=== PATIENT | female | born 1940 | race Caucasian/White ===

== ENCOUNTER 2017-07-11 03:48 | Observation (INO) | payer MEDICARE, OTHER ==
[2017-07-11] MEDS ORDERED: Sodium Chloride 0.9% 1,000 ML IV SCH (04:15)
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
[2017-07-11] MEDS ORDERED: Sodium Chloride 0.9% 10 ML Syringe FLUSH PRN (04:29)
[2017-07-11] MEDS ORDERED: Iopamidol 612 MG/ML 100 ML Bottle IVPUSH ONE (04:29)
[2017-07-11] MEDS ORDERED: Sodium Chloride 0.9% 250 ML IV SCH (04:30)
[2017-07-11] MEDS ORDERED: HYDROmorphone 0.5 MG/0.5 ML SYRINGE IVPUSH ONE ×2 (05:19→14:11)
[2017-07-11] MEDS ORDERED: Bupivacaine 0.5% 10 ML SDV INJECT ONE (06:59)
[2017-07-11] MEDS ORDERED: Lidocaine 1% with EPINEPHrine 1:100,000 20 ML MDV INJECT ONE (06:59)
[2017-07-11] MEDS ORDERED: Diphtheria,Pertussis(Acell),Tetanus Vaccine 0.5 ML SDV IM ONE (07:26)
[2017-07-11] MEDS ORDERED: CARISOPRODOL 350 MG PO PRN (08:32)
[2017-07-11] MEDS ORDERED: SENNOSIDES 8.6 MG PO PRN (08:32)
[2017-07-11] MEDS ORDERED: Ondansetron 4 MG/2 ML SDV IVPUSH PRN (08:34)
[2017-07-11] MEDS ORDERED: Lactated Ringers 1,000 ML IV SCH (08:45)
[2017-07-11] MEDS ORDERED: Pantoprazole 40 MG Tab.CR PO SCH (09:00)
[2017-07-11] MEDS ORDERED: DULoxetine 60 MG Cap*PT OWN MED PO SCH (09:00)
[2017-07-11] MEDS ORDERED: FUROSEMIDE 40 MG PO SCH (09:00)
[2017-07-11] MEDS ORDERED: Diltiazem 180 MG Cap.CD PO SCH ×2 (09:00→12:15)
[2017-07-11] MEDS ORDERED: Aspirin 81 MG Tab.EC PO SCH (09:00)
[2017-07-11] MEDS ORDERED: DULoxetine 30 MG Cap PO SCH (09:00)
[2017-07-11] MEDS ORDERED: Pregabalin 25 MG Cap PO SCH (09:00)
[2017-07-11] MEDS ORDERED: Lidocaine 5% 700 MG Patch TOP SCH (10:30)
[2017-07-11] MEDS ORDERED: DULOXETINE 30 MG PO SCH (10:58)
[2017-07-11] MEDS ORDERED: DILTIAZEM CD 360 MG PO SCH (11:03)
[2017-07-11] MEDS ORDERED: PREGABALIN 100 MG PO SCH (11:05)
[2017-07-11] MEDS ORDERED: Aspirin 81 MG Tab.Chew*PT OWN MED PO SCH (11:30)
[2017-07-11] MEDS ORDERED: Omeprazole 20 MG Cap.CR*PT OWN MED PO ONE (11:30)
[2017-07-11] MEDS ORDERED: Acetaminophen/oxyCODONE 325-5 MG Tab PO PRN (14:11)
--- NOTE | 2017-07-11 16:37 | CT ---
CT abdomen and pelvis Technique: Multiple axial sections were obtained from above the dome of the diaphragm inferiorly through the pubic symphysis. Intravenous contrast was utilized. No oral contrast has been given. Delayed images were also obtained through the bladder. Comparison: No prior abdominal imaging. Findings: Visualized lung bases show nothing acute. Heart is enlarged. Liver shows no focal parenchymal abnormality. Spleen shows no discrete abnormality. Very minimal low density area is seen within the posterior subcapsular region of the spleen which is most likely incidental given its small size. Adrenal glands show no nodule. Kidneys show symmetric contrast enhancement without hydronephrosis or mass. Pancreas is within normal limits. Surgical clips seen from prior cholecystectomy. Diffuse atherosclerotic calcification noted within the aorta without aneurysm. No retroperitoneal adenopathy or mesenteric abnormalities are seen. No pelvic mass or adenopathy is seen. Bladder is dilated. Previous lower lumbar spine surgery is noted. No free fluid or inflammatory change is seen. No acute bony abnormality is identified. Right hip prosthesis is noted. Impression: 1. Findings felt to be incidental as noted above. Nothing acute is appreciated. Diagnostic code #2 I agree with preliminary report from [facility], finalized at 07/11/17, 6:58 AM Central Time
--- NOTE | 2017-07-11 16:37 | CT ---
Head CT Technique: Multiple axial sections through the brain were obtained. Intravenous contrast was not utilized. Comparison: No prior intracranial imaging. Findings: Ventricles along the basal cisterns and sulci over the convexities are mildly prominent. Minimal diminished density is noted within the periventricular white matter compatible with small vessel ischemic demyelination change. Several incidental lacunar infarcts are noted within the basal ganglia. No evidence of intracranial hemorrhage. No midline shift or mass effect is seen. Visualized sinuses are clear. No acute calvarial abnormality is seen. Minimal soft tissue swelling and soft tissue air is seen within the lateral orbital region on the left side. Impression: 1. Mild senescent change. 2. Probable soft tissue injury lateral to the left orbital region. 3. No acute intracranial abnormality is identified. Diagnostic code #3 I agree with preliminary report from [facility], finalized at 07/11/17, 6:32 AM Central Time
--- NOTE | 2017-07-11 16:37 | CR ---
Left shoulder: Single AP view of the left shoulder was obtained. Comparison: No previous study. Mildly displaced surgical neck fracture is seen. Pacemaker is noted. Osteopenia is seen. No additional abnormality is noted. Impression: 1. Proximal left humeral fracture. Diagnostic code #3
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
[2017-07-11] MEDS ORDERED: ZOLPIDEM 10 MG PO SCH (21:00)
[2017-07-11] MEDS ORDERED: PRAVASTATIN 10 MG PO SCH (21:00)
[2017-07-11] MEDS ORDERED: Remove Patch*LIDOCAINE TRDERM SCH (22:30)
[2017-07-12] MEDS ORDERED: Omeprazole 20 MG Cap.CR*PT OWN MED PO SCH (07:00)
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
--- NOTE | 2017-07-12 14:26 | CR ---
Left femur: AP and lateral views of the left femur were obtained. Comparison: Slightly impacted subcapital fracture is felt to be present. Bony structures are osteopenic. Degenerative change is noted within the knee with medial joint space narrowing and chondrocalcinosis within the menisci. Joint space narrowing seen within the medial left hip. Impression: 1. Slightly impacted subcapital fracture within the left hip. 2. Degenerative change within the left hip and knee. Diagnostic code #3 Agree with preliminary report issued by [facility] ([facility] preliminary report dictated on 07/11/17, 12:32 PM Central Time)
== END 2017-07-11 15:21 | disposition home or self-care (01) ==
LOC: JD.ED 03:48 → INTOOBSV 07:47 → EEVIPCON 07:47 → JD.MS 07:47
PROVIDERS: ADMIT Surgery; ATTEND Surgery
DX: S72.012A Unspecified intracapsular fracture of left femur, initial encounter for closed fracture (principal); S42.292A Other displaced fracture of upper end of left humerus, initial encounter for closed fracture; S01.112A Laceration without foreign body of left eyelid and periocular area, initial encounter; I48.91 Unspecified atrial fibrillation; I73.9 Peripheral vascular disease, unspecified; E11.9 Type 2 diabetes mellitus without complications; I10 Essential (primary) hypertension; M54.9 Dorsalgia, unspecified; G89.29 Other chronic pain; E78.00 Pure hypercholesterolemia, unspecified; W19.XXXA Unspecified fall, initial encounter; Z79.01 Long term (current) use of anticoagulants; Z90.49 Acquired absence of other specified parts of digestive tract; Z88.8 Allergy status to other drugs, medicaments and biological substances; Z88.2 Allergy status to sulfonamides; Z91.013 Allergy to seafood; Z79.82 Long term (current) use of aspirin; Z79.899 Other long term (current) drug therapy
CPT/HCPCS: 12011; 36415; 70450; 73020; 73552; 74177; 80053; 81001; 82962; 83735; 85014; 85018; 85025; 90471; 90715; 93005; 96361; 96374; 99285; A9270; J1170; J7040; J7120; G0378